=== PATIENT | female | born 1950 | race Caucasian/White ===

== ENCOUNTER → 2018-01-24 | Outpatient (CLI) | payer OTHER | LOC: FIMAGING 09:35 | PROVIDERS: ATTEND Family Medicine | DX: Z12.31 Encounter for screening mammogram for malignant neoplasm of breast (principal) ==

== ENCOUNTER 2019-05-16 13:38 | Emergency (ER) | payer OTHER | END 2019-05-16 16:45 | disposition home or self-care (01) ==